=== PATIENT | male | born 2000 | race Caucasian/White ===

== ENCOUNTER 2022-08-24 18:46 | Inpatient (IN) | payer MEDICAID, OTHER ==
[~2022-08-24] VITALS: Ht 162.6 cm; Wt 83.0 kg
[2022-08-24] MEDS ORDERED: OLANZapine 5 MG TABLET PO ONE (22:15)
[2022-08-24 22:25] LABS: BASOPHILS % (AUTO) 0.4 % (0.0-2.0); HEMATOCRIT 42.2 % (41-53); LYMPHOCYTES # (AUTO) 2.5 K/uL (1.0-4.8); LYMPHOCYTES % (AUTO) 19.9 % (22.0-44.0); MEAN CORPUSCULAR HEMOGLOBIN 28.9 pg (26.0-34.0); MEAN CORPUSCULAR HGB CONC 33.1 G/dL (31.0-37.0); MEAN CORPUSCULAR VOLUME 88 fL (80-100); MONOCYTES # (AUTO) 0.6 K/uL (0.1-1.0); MONOCYTES % (AUTO) 5.1 % (2.0-9.0); NEUTROPHILS # (AUTO) 8.6 K/uL (1.8-7.7); NEUTROPHILS % (AUTO) 68.6 % (40.0-70.0); PLATELET COUNT (AUTO) 256 K/uL (150-450); RED BLOOD CELL COUNT(AUTO) 4.82 MIL/uL (4.50-5.90); RED CELL DISTRIBUTION WIDTH 13.9 % (11.5-14.5)
[2022-08-24] MEDS ORDERED: HALOPERIDOL 5 MG TABLET PO PRN (22:30)
[2022-08-24] MEDS ORDERED: ZOLPIDEM TARTRATE 10 MG TABLET PO PRN (22:30)
[2022-08-24 22:32] LABS: ANION GAP 9 mmol/L (8-16); CALCIUM, TOTAL 9.3 mg/dL (8.8-10.5); CARBON DIOXIDE 27 mmol/L (22-29); CHLORIDE 105 mmol/L (98-107); CREATININE 0.83 mg/dL (0.60-1.30); GLOMERULAR FILTR. RATE CALC > 60 mL/min (>60); GLUCOSE,RANDOM 112 mg/dL (70-110); POTASSIUM 3.7 mmol/L (3.5-5.1); SODIUM SERUM 141 mmol/L (136-145); UREA NITROGEN, BLOOD 12 mg/dL (7-18)
[2022-08-24 22:38] LABS: ALANINE AMINOTRANSFERASE 23 U/L (12-78); ALBUMIN 4.2 g/dL (3.4-5.0); ALKALINE PHOSPHATASE 113 U/L (46-116); ASPARTATE AMINOTRANSFERASE 26 U/L (15-37); BILIRUBIN,TOTAL 0.3 mg/dL (0.1-1.0); TOTAL PROTEIN, SERUM 7.8 g/dL (6.4-8.2)
[2022-08-24 23:11] LABS: COVID AG,FIA SOURCE NASOPHARYNGEAL
[2022-08-24 23:32] LABS: APPEARANCE,URINE CLEAR (CLEAR); BILIRUBIN,URINE NEGATIVE (NEGATIVE); GLUCOSE, URINE (UA) NEGATIVE (NEGATIVE); KETONES,URINE NEGATIVE (NEGATIVE); LEUKOCYTE ESTERASE ,URINE NEGATIVE (NEGATIVE); NITRATE,URINE NEGATIVE (NEGATIVE); OCCULT BLOOD,URINE NEGATIVE (NEGATIVE); PH,URINE 6.5 (5.0-8.0); PROTEIN,URINE TRACE mg/dL (NEGATIVE); SPECIFIC GRAVITIY, URINE 1.027 (1.003-1.030); UROBILINOGEN,URINE <=1.0 mg/dL (<=1.0)
[2022-08-24 23:38] LABS: AMPHET/METH SCREEN,URINE NEGATIVE (NEGATIVE); BARBITURATE SCREEN, URINE NEGATIVE (NEGATIVE); BENZODIAZEPINES SCREEN,URINE NEGATIVE (NEGATIVE); CANNABINOID SCREEN,URINE NEGATIVE (NEGATIVE); COCAINE SCREEN,URINE NEGATIVE (NEGATIVE); METHADONE SCREEN, URINE NEGATIVE (NEGATIVE); OPIATE SCREEN,URINE NEGATIVE (NEGATIVE); PHENCYCLIDINE SCREEN,URINE NEGATIVE (NEGATIVE)
[2022-08-25 03:15] VITALS: BP 141/79
[2022-08-25] MEDS ORDERED: INFLUENZA VIRUS VACCINE QVS 2022-23 (6MO+)/PF 60 MCG/0.5 ML SYRINGE IM. ONE (04:45)
[2022-08-25] MEDS ORDERED: MAGNESIUM HYDROXIDE SUSPENSION 30 ML UDCUP PO PRN (05:00)
[2022-08-25] MEDS ORDERED: ACETAMINOPHEN 325 MG TABLET PO PRN (05:00)
[2022-08-25] MEDS ORDERED: BENZOCAINE/MENTHOL LOZENGE PO PRN (05:00)
[2022-08-25] MEDS ORDERED: LOPERAMIDE HCL 2 MG CAPSULE PO PRN (05:00)
[2022-08-25] MEDS ORDERED: OMEPRAZOLE 20 MG CAPSULE PO PRN (05:00)
[2022-08-25] MEDS ORDERED: ALBUTEROL SULFATE HFA 90 MCG/PUFF 8 GM INHALER IH PRN (05:00)
[2022-08-25] MEDS ORDERED: BACITRACIN 28 GM OINTMENT TP PRN (05:00)
[2022-08-25] MEDS ORDERED: ONDANSETRON HCL 4 MG TABLET PO PRN (05:00)
[2022-08-25] MEDS ORDERED: DOCUSATE SODIUM 100 MG CAPSULE PO PRN (05:00)
[2022-08-25] MEDS ORDERED: CloNIDine HCL 0.1 MG TABLET PO PRN (05:00)
[2022-08-25] MEDS ORDERED: MAG HYDROX/AL HYDROX/SIMETH ES 30 ML SUSPENSION UDCUP PO PRN (05:00)
[2022-08-25] MEDS ORDERED: PETROLATUM,WHITE 28 GM JELLY TP PRN (05:00)
[2022-08-25] MEDS ORDERED: IBUPROFEN 600 MG TABLET PO PRN (05:00)
[2022-08-25] MEDS ORDERED: GUAN1TAB22 PO (14:12)
[2022-08-25] MEDS ORDERED: QUET200T PO (14:12)
[2022-08-25] MEDS: QUEtiapine FUMARATE 100 MG TABLET PO SCH (16:54)
[2022-08-25] MEDS: GuanFACINE HCL 1 MG TABLET PO SCH (17:00)
[2022-08-25 20:11] VITALS: BP 110/77
[2022-08-25] MEDS: LORazepam 2 MG TABLET PO PRN (20:13)
[2022-08-26] MEDS: GuanFACINE HCL 1 MG TABLET PO SCH ×3 (08:02→16:16)
[2022-08-26] MEDS: QUEtiapine FUMARATE 100 MG TABLET PO SCH ×3 (08:02→16:16)
[2022-08-26 08:29] VITALS: BP 138/73
[2022-08-26] MEDS: LORazepam 2 MG TABLET PO PRN ×2 (16:16→21:29)
[2022-08-26] MEDS ORDERED: QUET100T34 PO (19:13)
[2022-08-26] MEDS ORDERED: GUAN1TAB2 PO (19:13)
[2022-08-26 20:20] VITALS: BP 135/85
[2022-08-27] MEDS: QUEtiapine FUMARATE 100 MG TABLET PO SCH (08:36)
[2022-08-27] MEDS: GuanFACINE HCL 1 MG TABLET PO SCH (09:00)
== END 2022-08-27 12:02 | disposition home or self-care (01) | DRG 750 ==
LOC: EDSEX 18:50 → EMS 18:50 → EDBD 08-25 00:01 → B3A 08-25 00:01
PROVIDERS: ADMIT Psychiatry & Neurology Psychiatry; ATTEND Psychiatry & Neurology Psychiatry
DX: F25.9 Schizoaffective disorder, unspecified (principal); R45.850 Homicidal ideations; R45.851 Suicidal ideations; F32.A Depression, unspecified; F41.9 Anxiety disorder, unspecified; G47.00 Insomnia, unspecified; K59.00 Constipation, unspecified; Z20.822 Contact with and (suspected) exposure to COVID-19; Z79.899 Other long term (current) drug therapy
CPT/HCPCS: 80053; 80307; 81003; 85025; 99285; G0480